=== PATIENT | female | born 1975 | race Caucasian/White ===

== ENCOUNTER 2018-08-18 10:58 | Emergency (ER) | payer MEDICAID ==
[~2018-08-18] VITALS: Ht 160 cm; Wt 90.7 kg
== END 2018-08-18 15:46 | disposition home or self-care (01) ==
LOC: ER 10:58
DX: S92.302A Fracture of unspecified metatarsal bone(s), left foot, initial encounter for closed fracture (principal); F17.200 Nicotine dependence, unspecified, uncomplicated; Z91.041 Radiographic dye allergy status; X58.XXXA Exposure to other specified factors, initial encounter
CPT/HCPCS: 99283

== ENCOUNTER 2023-11-17 16:35 | Emergency (ER) | payer OTHER ==
[~2023-11-17] VITALS: Ht 160 cm; Wt 77.1 kg
[2023-11-17 19:34] VITALS: BP 156/91
[2023-11-17] MEDS ORDERED: Neurontin 300300 MG PO (21:21)
== END 2023-11-17 22:05 | disposition home or self-care (01) ==
LOC: ER 16:35
DX: M54.41 Lumbago with sciatica, right side (principal); G89.29 Other chronic pain; F17.200 Nicotine dependence, unspecified, uncomplicated; Z91.041 Radiographic dye allergy status
CPT/HCPCS: 96372; 99283-25; A9270; J1170; J1885